=== PATIENT | male | born 1990 | race African-American/Black ===

== ENCOUNTER 2018-04-18 04:13 | Emergency (ER) | payer MEDICAID ==
[~2018-04-18] VITALS: Ht 167.6 cm; Wt 84.0 kg
[2018-04-18 06:45] VITALS: BP 138/64
== END 2018-04-18 06:50 | disposition home or self-care (01) ==
LOC: ER 04:13
DX: K04.7 Periapical abscess without sinus (principal); R03.0 Elevated blood-pressure reading, without diagnosis of hypertension; F17.210 Nicotine dependence, cigarettes, uncomplicated
CPT/HCPCS: 99283